=== PATIENT | female | born 1960 | race Caucasian/White ===

== ENCOUNTER 2023-07-22 09:24 | Emergency (ER) | payer MEDICARE, SELFPAY ==
--- NOTE | 2023-07-22 | XR_ITS ---
Patient: RENA MONIQUE Facility:?[facility] Patient ID:?[id number] Site Patient ID:?[id number]. Site :?[id number] Study:?XRay-Chest 2V-07/22/2023 11:38:43 AM Ordering Physician:DAVID Final Report: Indication: Shortness of breath Technique: PA and lateral views of the chest. Comparison: None. Findings: Low lung volumes. Normal cardiomediastinal silhouette. Minimal right basilar opacity. No pleural effusion or visualized pneumothorax. Thoracic spinal stimulator leads are seen. Impression: Minimal right basilar opacity may represent atelectasis given low lung volumes or developing infection. Dictated by Ryder Neri MD @ 07/22/2023 11:46:07 AM Signed by:?Ryder Neri MD @07/22/2023 11:46:07 AM (Electronic Signature)
[2023-07-22 09:37] VITALS: BP 111/77; PULSE 96; RESP 20; TEMP 35.8; O2SAT 96; BMI 36.2
[2023-07-22] MEDS: IPRAT-ALBUT 0.5-2.5 MG/3 ML NEB 1 NEB IH (10:25)
[2023-07-22 10:54] LABS: Basophils Percent Auto 0.1 % (0.0-3.0); Hematocrit 40.7 % (33.0-51.0); Immature Granulocytes Pct Auto 0.1 %; Lymphocytes Percent Auto 17.4 % (20-44); Mean Corpuscular HGB Conc 32 gm/dL (32-36); Mean Corpuscular Hemoglobin 29 pg (26-34); Mean Corpuscular Volume 92 fL (80-100); Monocytes Percent Auto 2.8 % (0.0-11.0); Neutrophils Percent Auto 79.6 % (42.0-72.0); Platelet Count* 445 K/uL (140-440); RDW Coefficient of Variation % 12.5 % (11.5-15.5); Red Blood Count 4.42 m/uL (4.00-5.20); White Blood Count* 14.62 K/uL (4.50-11.00)
[2023-07-22 10:59] LABS: Slide Review Reflex No
[2023-07-22 11:00] VITALS: PULSE 92; RESP 14; O2SAT 96
--- NOTE | 2023-07-22 11:04 | ED.SOB ---
HPI - SOB/Dyspnea General Date Seen: 07/22/23 Chief Complaint: Shortness of Breath/Dyspnea Stated Complaint: pneumonia Time Seen by Provider: 07/22/23 09:40 Source: patient Mode of arrival: ambulatory Limitations: no limitations History of Present Illness HPI Narrative: Patient is a 62-year-old female who was diagnosed with pneumonia 3 days ago. She started on prednisone and amoxicillin. She has a history of COPD, hypertension. States symptoms started about a week ago at were getting worse so she went to her primary care provider. At that time an x-ray was done showing a right lower lobe pneumonia. Was started on left previously mentioned prescriptions. Noticed today she was having some chest pain so was concerned and came to the emergency department to be evaluated. Also states she is having a worsening cough and shortness of breath. Notices she has difficulty going up and down her steps without getting short of breath. Was not tested for COVID/flu/RSV at her previous appointment. Has not had any fevers. Denies headache, vision changes, abdominal pain, nausea/vomiting, weakness, numbness. Has not been taking her breathing treatments because she do not know she was able to since she got a new machine and was afraid she would infect it. Related Data Home Medications Medication Instructions Recorded Confirmed amitriptyline 25 mg tablet 25 mg PO QPM 07/22/23 07/22/23 amoxicillin 500 mg capsule mg PO 07/22/23 celecoxib 200 mg capsule 200 mg PO DAILY 07/22/23 07/22/23 hydrocodone 5 mg-acetaminophen 325 1 - 2 tab PO DAILY PRN chronic pain 07/22/23 07/22/23 mg tablet lisinopril 20 mg tablet 20 mg PO DAILY 07/22/23 07/22/23 prednisone 20 mg tablet 40 mg PO DAILY 07/22/23 07/22/23 tramadol 300 mg tablet,extended 300 mg PO DAILY 07/22/23 07/22/23 release 24 hr Previous Rx's Medication Instructions Recorded azithromycin 250 mg tablet See Rx Instructions PO .COMPLEX #6 07/22/23 (Zithromax) tabs benzonatate 100 mg capsule 100 mg PO TID #15 caps 07/22/23 Allergies Allergy/AdvReac Type Severity Reaction Status Date / Time No Known Drug Allergies Allergy Verified 07/22/23 09:36 Review of Systems Status of ROS: Reports: 10 or more systems reviewed and unremarkable except as noted in History and below [facility] Social History Smoking Status: Smoker, status unknown How often do you have a drink containing alcohol: never AUDIT-C Alcohol total score: 0 Non-prescribed substance use: denies use Exam Narrative: Exam Narrative: Const: Well-nourished, Well-developed, in mild distress Eyes: PERRL, no conjunctival injection, and symmetrical lids HENT: Atraumatic external nose and ears. Moist mucous membranes. Neck: Symmetric, trachea midline, No thyromegaly. CVS: RRR, No murmurs or gallops. Peripheral pulses 2+ and equal in all extremities RESP: Unlabored respiratory effort. Clear to auscultation bilaterally. GI: Nontender/Nondistended, No rebound or guarding. MSK:Extremities w/o deformity, Normal Active ROM Skin: Warm, Dry. No rashes or lesions. Neuro: Normal Muscle tone, No focal neurological deficits. Psych: Awake, Alert, & Oriented x3. Appropriate mood and affect. Const: Vital Signs, click to edit/add: Vital Signs - 24 hr 07/22/23 09:37 07/22/23 11:00 07/22/23 12:32 Temperature 96.4 F L Pulse Rate 92 82 Pulse Rate [Pulse Oximeter] 96 Respiratory Rate 20 14 14 Blood Pressure 135/90 H Blood Pressure [Ri ght Upper Arm] 111/77 Pulse Oximetry 96 96 99 Oxygen Delivery Me thod Room Air Course Vital Signs Vital signs: Initial Vital Signs Temperature 96.4 F L 07/22/23 09:37 Temperature Source Temporal Artery Scan 07/22/23 09:37 Pulse Rate 96 07/22/23 09:37 Respiratory Rate 20 07/22/23 09:37 Blood Pressure 111/77 07/22/23 09:37 Blood Pressure Mean 88 07/22/23 09:37 Blood Pressure Position Sitting 07/22/23 09:37 Pulse Oximetry 96 07/22/23 09:37 Oxygen Delivery Method Room Air 07/22/23 09:37 Vital Signs Temperature 96.4 F L 07/22/23 09:37 Pulse Rate 96 07/22/23 09:37 Respiratory Rate 20 07/22/23 09:37 Blood Pressure 111/77 07/22/23 09:37 Pulse Oximetry 96 07/22/23 09:37 Oxygen Delivery Method Room Air 07/22/23 09:37 Temperature 96.4 F L 07/22/23 09:37 Pulse Rate 82 07/22/23 12:32 Respiratory Rate 14 07/22/23 12:32 Blood Pressure 135/90 H 07/22/23 12:32 Pulse Oximetry 99 07/22/23 12:32 Oxygen Delivery Method Room Air 07/22/23 09:37 Medications Administered Medications: Discontinued Medications Generic Name Dose Route Start Last Admin Trade Name Bonita PRN Reason Stop Dose Admin Albuterol/Ipratropium 1 neb 07/22/23 10:04 07/22/23 10:25 Iprat-Albut 0.5-2.5 Mg/3 Ml Neb IH 07/22/23 10:05 1 neb ONCE ONE Administration MDM - SOB/Dyspnea MDM Narrative Medical decision making narrative: Patient is a 62-year-old female presenting for chest pain, cough, shortness of breath. She did get diagnosed with pneumonia few days ago is think your symptoms are worse. Has not been using her breathing treatments as she was afraid to contaminate her apparatus. We will give her a DuoNeb treatment here in the emergency department. Was do chest x-ray to look for any worsening pneumonia. BMP, CBC, COVID/flu/RSV ordered. Since she is having chest pain we will do a troponin an EKG. White blood cell count came back at 14.62. Due to this she now meets SIRS criteria and blood cultures and lactate were added. Lactate is within normal limits. BMP shows no concerning abnormalities. COVID/flu/RSV is negative. Symptoms have improved significantly with the DuoNeb she states. Is no longer having the chest pain. EKG and both troponins showed no concerning findings. Chest x-ray reviewed by myself they react does show some minimal right basilar opacity that the the atelectasis or developing infection. Between that and the elevated white blood cell count I will add azithromycin. She is otherwise doing well. I will give her prescription for Tessalon Perles if the coughing continues. Also gave her a prescription for a spacer for her breathing treatments as she does not have 1. She is agreeable to this plan. Lab Data Labs: Lab Results 07/22/23 07/22/23 07/22/23 Range/Units 10:26 10:30 11:00 WBC 14.62 H (4.50-11.00) K/uL RBC 4.42 (4.00-5.20) m/uL Hgb 13.0 (12.0-16.0) gm/dL Hct 40.7 (33.0-51.0) % MCV 92 (80-100) fL MCH 29 (26-34) pg MCHC 32 (32-36) gm/dL RDW Coeff of Horacio 12.5 (11.5-15.5) % Plt Count 445 H (140-440) K/uL Neut % (Auto) 79.6 H (42.0-72.0) % Lymph % (Auto) 17.4 L (20-44) % Calvert % (Auto) 2.8 (0.0-11.0) % Eos % (Auto) 0.0 (0.0-7.0) % Baso % (Auto) 0.1 (0.0-3.0) % Neut # (Auto) 11.60 H (1.7-7.0) K/uL Lymph # (Auto) 2.50 (0.90-2.90) K/uL Calvert # (Auto) 0.40 (0.00-0.90) K/UL Eos # (Auto) 0.00 (0.00-0.50) K/uL Baso # (Auto) 0.00 (0.00-0.30) K/uL Abs Immat Gran (auto) 0.00 (0.00-0.30) K/uL Imm/Tot Granulo (auto) 0.1 % Sodium 139 (135-149) mmol/L Potassium 4.7 (3.6-5.1) mmol/L Chloride 104 (96-114) mmol/L Carbon Dioxide 26 (20-32) mmol/L Anion Gap 9 (7-15) mEq/L BUN 28 (7-30) mg/dL Creatinine 0.8 (0.5-1.5) mg/dL Estimated Creat Clear 46.73 Estimated GFR 84 ml/min Glucose 107 (60-115) mg/dL Lactate (0.5-1.9) mmol/L Calcium 9.7 (8.4-10.6) mg/dL SARS-CoV-2 (PCR) Negative SARS-CoV-2 (Negative) Influenza Type A (PCR) Negative PCR FLU A (Negative) Influenza Type B (PCR) Negative PCR FLU B (Negative) RSV (PCR) Negative PCR RSV (Negative) Lab Acknowledgement New Spec Needed POC Troponin I 0.00 L (0.01-0.04) ng/ml 07/22/23 07/22/23 Range/Units 11:19 12:38 WBC (4.50-11.00) K/uL RBC (4.00-5.20) m/uL Hgb (12.0-16.0) gm/dL Hct (33.0-51.0) % MCV (80-100) fL MCH (26-34) pg MCHC (32-36) gm/dL RDW Coeff of Horacio (11.5-15.5) % Plt Count (140-440) K/uL Neut % (Auto) (42.0-72.0) % Lymph % (Auto) (20-44) % Calvert % (Auto) (0.0-11.0) % Eos % (Auto) (0.0-7.0) % Baso % (Auto) (0.0-3.0) % Neut # (Auto) (1.7-7.0) K/uL Lymph # (Auto) (0.90-2.90) K/uL Calvert # (Auto) (0.00-0.90) K/UL Eos # (Auto) (0.00-0.50) K/uL Baso # (Auto) (0.00-0.30) K/uL Abs Immat Gran (auto) (0.00-0.30) K/uL Imm/Tot Granulo (auto) % Sodium (135-149) mmol/L Potassium (3.6-5.1) mmol/L Chloride (96-114) mmol/L Carbon Dioxide (20-32) mmol/L Anion Gap (7-15) mEq/L BUN (7-30) mg/dL Creatinine (0.5-1.5) mg/dL Estimated Creat Clear Estimated GFR ml/min Glucose (60-115) mg/dL Lactate 1.5 (0.5-1.9) mmol/L Calcium (8.4-10.6) mg/dL SARS-CoV-2 (PCR) (Negative) Influenza Type A (PCR) (Negative) Influenza Type B (PCR) (Negative) RSV (PCR) (Negative) Lab Acknowledgement POC Troponin I 0.00 L (0.01-0.04) ng/ml Imaging Data Chest x-ray: Attestation: I have reviewed the pertinent imaging results. Radiologist's impression: Minimal right basilar opacity may represent atelectasis given low lung volumes or developing infection. Dictated by Ryder Neri MD @ 07/22/2023 11:46:07 AM ECG Data Attestation: I personally reviewed and interpreted this ECG as follows: Prior ECG tracings: not available for review Interpretation: Normal sinus rhythm with a rate of 86 beats per minute, normal intervals, normal axis, no ST or T-wave abnormalities Discharge Plan Discharge Clinical Impression: Pneumonia Patient Disposition: Home, Self-Care Condition: Improved Instructions: Community Acquired Pneumonia (DC) Additional Instructions: Use the spacer with your breathing treatments. I gave you a written prescription for 1. Use the breathing treatments as needed for your cough. Continue taking amoxicillin and also start taking the azithromycin. Return to emergency department for new or worsening symptoms Prescriptions: New azithromycin [Zithromax] 250 mg tablet See Rx Instructions PO .COMPLEX Qty: 6 0RF Rx Instructions: For 250 mg dose pack: take 500 mg today (day 1), then 250 mg for 4 days (days 2-5) benzonatate 100 mg capsule 100 mg PO TID Qty: 15 0RF No Action celecoxib 200 mg capsule 200 mg PO DAILY amoxicillin 500 mg capsule PO hydrocodone-acetaminophen 5-325 mg tablet 1 - 2 tab PO DAILY PRN (Reason: chronic pain) lisinopril 20 mg tablet 20 mg PO DAILY prednisone 20 mg tablet 40 mg PO DAILY amitriptyline 25 mg tablet 25 mg PO QPM tramadol 300 mg tablet extended release 24 hr 300 mg PO DAILY Follow Up/Referrals: Janie Guevara PA-C [Primary Care Provider] - Stand Alone Forms: [employer] Info Instructions
[2023-07-22 11:14] LABS: Chloride* 104 mmol/L (96-114); Potassium* 4.7 mmol/L (3.6-5.1); Sodium* 139 mmol/L (135-149)
[2023-07-22 11:17] LABS: Creatinine* 0.8 mg/dL (0.5-1.5); Est. Creatinine Clearance* 46.73; Estimated Glomerular Filt Rate 84 ml/min
[2023-07-22 11:18] LABS: Anion Gap 9 mEq/L (7-15); Blood Urea Nitrogen* 28 mg/dL (7-30); Calcium* 9.7 mg/dL (8.4-10.6); Carbon Dioxide* 26 mmol/L (20-32); Glucose* 107 mg/dL (60-115)
[2023-07-22 11:23] LABS: Lab Add On Test New Spec Needed
[2023-07-22 11:24] LABS: PCR FLU A Negative PCR FLU A (Negative); PCR FLU B Negative PCR FLU B (Negative); PCR RSV Negative PCR RSV (Negative); SARS PCR* Negative SARS-CoV-2 (Negative)
[2023-07-22 11:26] LABS: Lactate* 1.5 mmol/L (0.5-1.9)
[2023-07-22 12:32] VITALS: BP 135/90; PULSE 82; RESP 14; O2SAT 99
== END 2023-07-22 13:05 | disposition home or self-care (01) ==
PROVIDERS: Emergency Provider Student in an Organized Health Care Education/Training Program; PCP Physician Assistant Medical
DX: J18.9 Pneumonia, unspecified organism (principal)
CPT/HCPCS: 36415; 71046; 80048; 83605; 84484; 85025; 87040; 87631; 93005; 94640; 99283; 99284

== ENCOUNTER 2024-03-20 13:41 | Emergency (ER) | payer MEDICARE, SELFPAY ==
[2024-03-20] VITALS (17 sets, daily range): BP systolic 95–99; BP diastolic 60–74; PULSE 79–115; RESP 12–18; TEMP 36.2–36.3; O2SAT 93–100; BMI 34.8
--- NOTE | 2024-03-20 14:34 | ED.GENADULT ---
HPI - General Adult General Chief complaint: Chest Pain <Colleen Kidd MD - Last Filed: 03/23/24 11:56> Stated complaint: shortness of breath, hurts to breath <Colleen Kidd MD - Last Filed: 03/23/24 11:56> Time Seen by Provider: 03/20/24 14:29 <Colleen Kidd MD - Last Filed: 03/23/24 11:56> Source: patient <Colleen Kidd MD - Last Filed: 03/23/24 11:56> History of Present Illness HPI narrative: Patient is a 63-year-old woman who comes in because of chest pain. She had had a little bit of an illness recently with a cough, had been treated with prednisone which she has since completed. She says the cough is getting better but as the cough has improved she has developed anterior chest pain which she notices mostly with any kind of movement or walking, as well as when she talks. She says if she is sitting or laying down, she does not have chest pain. It has been there for 3 days. She also feels short of breath. She denies fevers. She has not noted unusual leg pain or swelling, she says she has chronic leg problems related to her back pain. She quit smoking 9 years ago. She has no cardiac history. No history of DVT or PE. She does have a history of pneumonia. She is pain-free right now. <Colleen Kidd MD - Last Filed: 03/23/24 11:56> Related Data Home medications: Home Medications ?Medication ?Instructions ?Recorded ?Confirmed amitriptyline 25 mg tablet 25 mg PO QPM 07/22/23 03/20/24 celecoxib 200 mg capsule 200 mg PO DAILY 07/22/23 03/20/24 hydrocodone 5 mg-acetaminophen 325 1 - 2 tab PO DAILY PRN chronic pain 07/22/23 03/20/24 mg tablet lisinopril 20 mg tablet 20 mg PO DAILY 07/22/23 03/20/24 tramadol 300 mg tablet,extended 300 mg PO DAILY 07/22/23 03/20/24 release 24 hr Previous Rx's ?Medication ?Instructions ?Recorded prednisone 20 mg tablet 20 mg PO BID #10 tabs 03/20/24 <Colleen Kidd MD - Last Filed: 03/23/24 11:56> Allergies/adverse reactions: Allergies Allergy/AdvReac Type Severity Reaction Status Date / Time No Known Drug Allergies Allergy Verified 03/20/24 16:28 <Colleen Kidd MD - Last Filed: 03/23/24 11:56> Review of Systems Status of ROS: Reports: 10 or more systems reviewed and unremarkable except as noted in History and below <Colleen Kidd MD - Last Filed: 03/23/24 11:56> [facility] Social History: Social History Smoking Status: Former smoker How often do you have a drink containing alcohol: never AUDIT-C Alcohol total score: 0 Non-prescribed substance use: denies use <Colleen Kidd MD - Last Filed: 03/23/24 11:56> Exam Narrative: Exam Narrative: Vital signs reviewed In general, alert, nontoxic mid aged woman. Speaks in full sentences. Head: Normocephalic, atraumatic. Eyes: Sclera clear. Pupils equal and reactive. ENT: Mucous membranes moist. Neck: Supple without adenopathy. Heart: Regular rate and rhythm without murmur. Chest is nontender to palpation. Lungs: Clear. No increased work of breathing, crackles or wheezes. Abdomen: Soft, nontender to palpation. Extremities: Well perfused, pulses intact. No significant edema. Neurologic: Alert, conversant. Speech fluent, face symmetric. Moves all extremities equally. Skin: Warm, dry well perfused. Affect: Normal. <Colleen Kidd MD - Last Filed: 03/23/24 11:56> Const: Vital Signs, click to edit/add: Vital Signs - 24 hr 03/20/24 13:59 03/20/24 14:34 03/20/24 15:19 Temperature 97.1 F L 97.3 F L Pulse Rate [Pulse Oximeter] 115 H 86 Respiratory Rate 12 18 Blood Pressure [Ri ght Upper Arm] 95/60 99/70 Pulse Oximetry 93 97 94 Oxygen Delivery Me thod Room Air Room Air <Colleen Kidd MD - Last Filed: 03/23/24 11:56> Vital Signs, click to edit/add: Vital Signs - 24 hr 03/20/24 13:59 03/20/24 14:34 03/20/24 15:19 Temperature 97.1 F L 97.3 F L Pulse Rate [Pulse Oximeter] 115 H 86 Respiratory Rate 12 18 Blood Pressure [Ri ght Upper Arm] 95/60 99/70 Pulse Oximetry 93 97 94 Oxygen Delivery Me thod Room Air Room Air <Adeola Quesada MD - Last Filed: 03/20/24 17:41> Documenting provider has reviewed patient's vital signs: yes <Colleen Kidd MD - Last Filed: 03/23/24 11:56> Course Course ED Course: On arrival, patient was maintained on monitor and pulse oximetry. She had an EKG which shows a sinus tachycardia, ventricular rate of 101, she was 115 when she came in. She has a corrected QT of 414 milliseconds and a normal GA interval. No acute ST segment changes, unremarkable T-waves. Baseline artifact makes interpretation of lead 3 difficult. Her exam is unremarkable. Vital signs aside from tachycardia are notable for an O2 sat of 93% on room air. She is afebrile. Pain seems somewhat atypical for cardiac pain, but will obtain a troponin series. D-dimer ordered as well. Other diagnostic considerations would include pulmonary embolism, pneumonia, chest wall pain, pleurisy, gastroesophageal reflux disease, among others. Nasal swab is positive for COVID[place] [address], platelets are also a little bit elevated at 468,000 hundred sixty eight thousand. Notably, she has a lymphocytosis. Other labs are pending at this time. I do think she should have a repeat troponin at 2 hours., depending on D-dimer may need imaging of her chest. Patient is signed out to Dr. Nino to follow-up on lab and imaging,determine final disposition and plan. <Colleen Kidd MD - Last Filed: 03/23/24 11:56> Reevaluation(s) Time of Reevaluation #1: 17:23 <Adeola Quesada MD - Last Filed: 03/20/24 17:41> Reevaluation #1: Have reviewed with patient that her CT is not showing any infiltrate, no pulmonary embolus. She does have some pulmonary emphysema, does have a history of remote smoking. She did get a DuoNeb in clinic while she was there this morning, did help her symptoms. She relays to me that she will start getting pain with activity and then feel like she cannot breathe. We are awaiting her 2nd troponin, if normal, very likely is not cardiac and certainly sounds like this is pulmonary. She has a nebulizer that was given to her from clinic, DuoNebs were sent in. She does feel better when she is on the prednisone. I do wonder if this is some COPD symptoms. She has a follow-up scheduled with her primary provider coming up, they can discuss this further, would recommend formal PFTs be done. She notes every time she gets a respiratory illness, she will get these symptoms. She did just complete prednisone 2 days ago, felt better on it. She was unaware that her COVID was positive. She really is not sick any longer, minimal cough at this time. She was originally in urgent care 8 days ago, did not have testing done for COVID. She believes the test maybe was missed as they did discuss it being done. As far as the COVID, discussed CDC guidelines. She is really not coughing, does not feel ill, feels like she gets chest pain and shortness of breath with activity and that this happens with colds. She is certainly far out that no medication is indicated for COVID. She does note that she has had an albuterol inhaler in the past and really does not help with the symptoms. The DuoNeb did this morning. <Adeola Quesada MD - Last Filed: 03/20/24 17:41> Vital Signs Vital signs: Initial Vital Signs Temperature 97.1 F L 03/20/24 13:59 Temperature Source Temporal Artery Scan 03/20/24 13:59 Pulse Rate 115 H 03/20/24 13:59 Respiratory Rate 12 03/20/24 13:59 Blood Pressure 95/60 03/20/24 13:59 Blood Pressure Mean 71 03/20/24 13:59 Blood Pressure Position Sitting 03/20/24 13:59 Pulse Oximetry 93 03/20/24 13:59 Oxygen Delivery Method Room Air 03/20/24 13:59 Vital Signs Temperature 97.1 F L 03/20/24 13:59 Pulse Rate 115 H 03/20/24 13:59 Respiratory Rate 12 03/20/24 13:59 Blood Pressure 95/60 03/20/24 13:59 Pulse Oximetry 93 03/20/24 13:59 Oxygen Delivery Method Room Air 03/20/24 13:59 Temperature 97.3 F L 03/20/24 15:19 Pulse Rate 81 03/20/24 17:45 Respiratory Rate 18 03/20/24 15:19 Blood Pressure 99/70 03/20/24 15:19 Pulse Oximetry 97 03/20/24 17:45 Oxygen Delivery Method Room Air 03/20/24 15:19 <Colleen Kidd MD - Last Filed: 03/23/24 11:56> Initial Vital Signs Temperature 97.1 F L 03/20/24 13:59 Temperature Source Temporal Artery Scan 03/20/24 13:59 Pulse Rate 115 H 03/20/24 13:59 Respiratory Rate 12 03/20/24 13:59 Blood Pressure 95/60 03/20/24 13:59 Blood Pressure Mean 71 03/20/24 13:59 Blood Pressure Position Sitting 03/20/24 13:59 Pulse Oximetry 93 03/20/24 13:59 Oxygen Delivery Method Room Air 03/20/24 13:59 Vital Signs Temperature 97.1 F L 03/20/24 13:59 Pulse Rate 115 H 03/20/24 13:59 Respiratory Rate 12 03/20/24 13:59 Blood Pressure 95/60 03/20/24 13:59 Pulse Oximetry 93 03/20/24 13:59 Oxygen Delivery Method Room Air 03/20/24 13:59 Temperature 97.3 F L 03/20/24 15:19 Pulse Rate 81 03/20/24 17:45 Respiratory Rate 18 03/20/24 15:19 Blood Pressure 99/70 03/20/24 15:19 Pulse Oximetry 97 03/20/24 17:45 Oxygen Delivery Method Room Air 03/20/24 15:19 <Adeola Quesada MD - Last Filed: 03/20/24 17:41> Medications Administered Medications: Discontinued Medications Generic Name Dose Route Start Last Admin Trade Name Freq PRN Reason Stop Dose Admin Ketorolac Tromethamine 15 mg 03/20/24 14:34 03/20/24 14:52 Ketorolac 15 Mg/Ml Inj IVP 03/20/24 14:35 15 mg ONCE ONE Administration <Colleen Kidd MD - Last Filed: 03/23/24 11:56> Discontinued Medications Generic Name Dose Route Start Last Admin Trade Name Bonita PRN Reason Stop Dose Admin Ketorolac Tromethamine 15 mg 03/20/24 14:34 03/20/24 14:52 Ketorolac 15 Mg/Ml Inj IVP 03/20/24 14:35 15 mg ONCE ONE Administration <Adeola Quesada MD - Last Filed: 03/20/24 17:41> Medical Decision Making Lab Data Lab results reviewed: Yes I reviewed the patient's lab results <Adeola Quesada MD - Last Filed: 03/20/24 17:41> Labs: Lab Results 03/20/24 03/20/24 03/20/24 Range/Units 14:12 14:35 14:49 WBC 17.61 H (4.50-11.00) K/uL RBC 4.51 (4.00-5.20) m/uL Hgb 13.1 (12.0-16.0) gm/dL Hct 42.0 (33.0-51.0) % MCV 93 (80-100) fL MCH 29 (26-34) pg MCHC 31 L (32-36) gm/dL RDW Coeff of Horacio 12.9 (11.5-15.5) % Plt Count 468 H (140-440) K/uL Neut % (Auto) 38.8 L (42.0-72.0) % Lymph % (Auto) 51.2 H (20-44) % [place] % (Auto) 7.6 (0.0-11.0) % Eos % (Auto) 1.4 (0.0-7.0) % Baso % (Auto) 0.2 (0.0-3.0) % Neut # (Auto) 6.80 (1.7-7.0) K/uL Lymph # (Auto) 9.00 H (0.90-2.90) K/uL [place] # (Auto) 1.30 H (0.00-0.90) K/UL Eos # (Auto) 0.20 (0.00-0.50) K/uL Baso # (Auto) 0.00 (0.00-0.30) K/uL Abs Immat Gran (auto) 0.10 (0.00-0.30) K/uL Imm/Tot Granulo (auto) 0.8 % Diff Slide Review Acceptable Review (Acceptable) D-Dimer Quant (PE/DVT) 0.84 H (0.00-0.50) ug/ml Sodium 139 (135-149) mmol/L Potassium 4.3 (3.6-5.1) mmol/L Chloride 104 (96-114) mmol/L Carbon Dioxide 28 (20-32) mmol/L Anion Gap 7 (7-15) mEq/L BUN 29 (7-30) mg/dL Creatinine 0.9 (0.5-1.5) mg/dL Estimated Creat Clear 46.13 Estimated GFR 72 ml/min Glucose 149 H (60-115) mg/dL Calcium 9.3 (8.4-10.6) mg/dL Total Bilirubin 0.3 (0.1-1.5) mg/dL Direct Bilirubin 0.3 (0.0-0.5) mg/dL AST 18 (12-35) U/L ALT 16 (4-35) U/L Alkaline Phosphatase 85 (40-150) U/L C-Reactive Protein < 0.5 L (0.5-1.0) mg/dL Total Protein 7.2 (6.0-8.3) g/dL Albumin 3.9 (3.3-5.0) g/dL Lipase 161 (23-300) U/L SARS-CoV-2 (PCR) POSITIVE SARS-CoV-2 A (Negative) Influenza Type A (PCR) Negative PCR FLU A (Negative) Influenza Type B (PCR) Negative PCR FLU B (Negative) RSV (PCR) Negative PCR RSV (Negative) POC Troponin I 0.00 L (0.01-0.04) ng/ml 03/20/24 Range/Units 17:00 WBC (4.50-11.00) K/uL RBC (4.00-5.20) m/uL Hgb (12.0-16.0) gm/dL Hct (33.0-51.0) % MCV (80-100) fL MCH (26-34) pg MCHC (32-36) gm/dL RDW Coeff of Horacio (11.5-15.5) % Plt Count (140-440) K/uL Neut % (Auto) (42.0-72.0) % Lymph % (Auto) (20-44) % [place] % (Auto) (0.0-11.0) % Eos % (Auto) (0.0-7.0) % Baso % (Auto) (0.0-3.0) % Neut # (Auto) (1.7-7.0) K/uL Lymph # (Auto) (0.90-2.90) K/uL [place] # (Auto) (0.00-0.90) K/UL Eos # (Auto) (0.00-0.50) K/uL Baso # (Auto) (0.00-0.30) K/uL Abs Immat Gran (auto) (0.00-0.30) K/uL Imm/Tot Granulo (auto) % Diff Slide Review (Acceptable) D-Dimer Quant (PE/DVT) (0.00-0.50) ug/ml Sodium (135-149) mmol/L Potassium (3.6-5.1) mmol/L Chloride (96-114) mmol/L Carbon Dioxide (20-32) mmol/L Anion Gap (7-15) mEq/L BUN (7-30) mg/dL Creatinine (0.5-1.5) mg/dL Estimated Creat Clear Estimated GFR ml/min Glucose (60-115) mg/dL Calcium (8.4-10.6) mg/dL Total Bilirubin (0.1-1.5) mg/dL Direct Bilirubin (0.0-0.5) mg/dL AST (12-35) U/L ALT (4-35) U/L Alkaline Phosphatase (40-150) U/L C-Reactive Protein (0.5-1.0) mg/dL Total Protein (6.0-8.3) g/dL Albumin (3.3-5.0) g/dL Lipase (23-300) U/L SARS-CoV-2 (PCR) (Negative) Influenza Type A (PCR) (Negative) Influenza Type B (PCR) (Negative) RSV (PCR) (Negative) POC Troponin I 0.01 (0.01-0.04) ng/ml <Colleen Kidd MD - Last Filed: 03/23/24 11:56> Lab Results 03/20/24 03/20/24 03/20/24 Range/Units 14:12 14:35 14:49 WBC 17.61 H (4.50-11.00) K/uL RBC 4.51 (4.00-5.20) m/uL Hgb 13.1 (12.0-16.0) gm/dL Hct 42.0 (33.0-51.0) % MCV 93 (80-100) fL MCH 29 (26-34) pg MCHC 31 L (32-36) gm/dL RDW Coeff of Horacio 12.9 (11.5-15.5) % Plt Count 468 H (140-440) K/uL Neut % (Auto) 38.8 L (42.0-72.0) % Lymph % (Auto) 51.2 H (20-44) % [place] % (Auto) 7.6 (0.0-11.0) % Eos % (Auto) 1.4 (0.0-7.0) % Baso % (Auto) 0.2 (0.0-3.0) % Neut # (Auto) 6.80 (1.7-7.0) K/uL Lymph # (Auto) 9.00 H (0.90-2.90) K/uL [place] # (Auto) 1.30 H (0.00-0.90) K/UL Eos # (Auto) 0.20 (0.00-0.50) K/uL Baso # (Auto) 0.00 (0.00-0.30) K/uL Abs Immat Gran (auto) 0.10 (0.00-0.30) K/uL Imm/Tot Granulo (auto) 0.8 % Diff Slide Review Acceptable Review (Acceptable) D-Dimer Quant (PE/DVT) 0.84 H (0.00-0.50) ug/ml Sodium 139 (135-149) mmol/L Potassium 4.3 (3.6-5.1) mmol/L Chloride 104 (96-114) mmol/L Carbon Dioxide 28 (20-32) mmol/L Anion Gap 7 (7-15) mEq/L BUN 29 (7-30) mg/dL Creatinine 0.9 (0.5-1.5) mg/dL Estimated Creat Clear 46.13 Estimated GFR 72 ml/min Glucose 149 H (60-115) mg/dL Calcium 9.3 (8.4-10.6) mg/dL Total Bilirubin 0.3 (0.1-1.5) mg/dL Direct Bilirubin 0.3 (0.0-0.5) mg/dL AST 18 (12-35) U/L ALT 16 (4-35) U/L Alkaline Phosphatase 85 (40-150) U/L C-Reactive Protein < 0.5 L (0.5-1.0) mg/dL Total Protein 7.2 (6.0-8.3) g/dL Albumin 3.9 (3.3-5.0) g/dL Lipase 161 (23-300) U/L SARS-CoV-2 (PCR) POSITIVE SARS-CoV-2 A (Negative) Influenza Type A (PCR) Negative PCR FLU A (Negative) Influenza Type B (PCR) Negative PCR FLU B (Negative) RSV (PCR) Negative PCR RSV (Negative) POC Troponin I 0.00 L (0.01-0.04) ng/ml 03/20/24 Range/Units 17:00 WBC (4.50-11.00) K/uL RBC (4.00-5.20) m/uL Hgb (12.0-16.0) gm/dL Hct (33.0-51.0) % MCV (80-100) fL MCH (26-34) pg MCHC (32-36) gm/dL RDW Coeff of Horacio (11.5-15.5) % Plt Count (140-440) K/uL Neut % (Auto) (42.0-72.0) % Lymph % (Auto) (20-44) % [place] % (Auto) (0.0-11.0) % Eos % (Auto) (0.0-7.0) % Baso % (Auto) (0.0-3.0) % Neut # (Auto) (1.7-7.0) K/uL Lymph # (Auto) (0.90-2.90) K/uL [place] # (Auto) (0.00-0.90) K/UL Eos # (Auto) (0.00-0.50) K/uL Baso # (Auto) (0.00-0.30) K/uL Abs Immat Gran (auto) (0.00-0.30) K/uL Imm/Tot Granulo (auto) % Diff Slide Review (Acceptable) D-Dimer Quant (PE/DVT) (0.00-0.50) ug/ml Sodium (135-149) mmol/L Potassium (3.6-5.1) mmol/L Chloride (96-114) mmol/L Carbon Dioxide (20-32) mmol/L Anion Gap (7-15) mEq/L BUN (7-30) mg/dL Creatinine (0.5-1.5) mg/dL Estimated Creat Clear Estimated GFR ml/min Glucose (60-115) mg/dL Calcium (8.4-10.6) mg/dL Total Bilirubin (0.1-1.5) mg/dL Direct Bilirubin (0.0-0.5) mg/dL AST (12-35) U/L ALT (4-35) U/L Alkaline Phosphatase (40-150) U/L C-Reactive Protein (0.5-1.0) mg/dL Total Protein (6.0-8.3) g/dL Albumin (3.3-5.0) g/dL Lipase (23-300) U/L SARS-CoV-2 (PCR) (Negative) Influenza Type A (PCR) (Negative) Influenza Type B (PCR) (Negative) RSV (PCR) (Negative) POC Troponin I 0.01 (0.01-0.04) ng/ml <Adeola Quesada MD - Last Filed: 03/20/24 17:41> Imaging Data Chest x-ray: Attestation: I have reviewed the pertinent imaging results. <Colleen Kidd MD - Last Filed: 03/23/24 11:56> Radiologist's impression: Patient: Rena Monique MR#: [id number] : 1960 Acct:[id number] Loc: ED Service Date: 03/20/[address]: Ordering Physician: Colleen Kidd M.D. Date of Service: 03/20/24 Procedure(s): XR chest 1V portable Accession Number(s): [id number] cc: Colleen iKdd M.D.; Janie Guevara PA-C~ For Patients: As a result of the Century Cures Act, medical imaging exams and procedure reports are released immediately into your electronic medical record. You may view this report before your referring provider. If you have questions, please contact your health care provider. Indication: Chest pain Comparison: None available. Technique: Single AP view chest Findings: There is hyperinflation and chronic interstitial change. There is no focal consolidation, effusion, or pneumothorax. The cardiac silhouette is mildly prominent. The bony thorax is grossly intact. Impression: Mild chronic interstitial changes without evidence of dense consolidation. Dictated by Tariq Pandey MD @ 03/20/2024 3:51:42 PM <Colleen Kidd MD - Last Filed: 03/23/24 11:56> CT scan - chest: Attestation: I have reviewed the pertinent imaging results. <Adeola Quesada MD - Last Filed: 03/20/24 17:41> Radiologist's impression: Patient: RENA MONIQUE Facility:?[facility] Patient ID:?[id number] Site Patient ID:?[id number]. Site :?1960 Study:?CT-Chest 75 CC ISOVUE 370-03/20/2024 4:28:35 PM Ordering Physician:Jolly aMcias Final Report: INDICATION: Cough, shortness of breath. TECHNIQUE: CT chest was acquired with 75 cc Isovue 370 IV contrast. COMPARISON: None. FINDINGS: Lungs and pleura: Pulmonary emphysema. No suspicious nodules or infiltrates. No pleural effusions, pleural thickening, or pneumothorax. Heart and vasculature: Heart size is normal. Coronary artery calcifications. Thoracic aorta and pulmonary artery are normal in caliber.No central pulmonary embolism. Lymph nodes/mediastinum: No mediastinal, hilar, or axillary adenopathy. Chest wall: No masses. Upper abdomen: Normal. Bones: Unremarkable for age. IMPRESSION: No acute intra thoracic abnormality including focal consolidations. Pulmonary emphysema. Please note that all CT scans at this facility use dose modulation, iterative reconstruction, and/or weight-based dosing when appropriate to reduce radiation dose to as low as reasonably achievable. Dictated by Timoteo Caldera MD @ 03/20/2024 5:13:39 PM (Electronic Signature) <Adeola Quesada MD - Last Filed: 03/20/24 17:41> Discharge Plan Discharge Clinical Impression: Pulmonary emphysema determined by X-ray, COVID-19 Chest pain Qualifiers: Chest pain type: other chest pain Qualified Code(s): R07.89 - Other chest pain <Colleen Kidd MD - Last Filed: 03/23/24 11:56> Patient Disposition: Home, Self-Care <Colleen Kidd MD - Last Filed: 03/23/24 11:56> Condition: Stable <Colleen Kidd MD - Last Filed: 03/23/24 11:56> Instructions: Emphysema (ED) <Colleen Kidd MD - Last Filed: 03/23/24 11:56> Additional Instructions: Do recommend that you do the DuoNebs up to 4 times a day for your symptoms. Will give another course of prednisone. Need to keep your clinic follow-up. You should get scheduled for formal pulmonary function tests but need to wait about 4-6 weeks until you are back to baseline. Your primary care provider should order these to further evaluate for symptomatic emphysema/COPD. The CT of the chest did show pulmonary emphysema changes but there was no blood clots/pulmonary emboli or any evidence of any infiltrate such as pneumonia. <Colleen Kidd MD - Last Filed: 03/23/24 11:56> Activity Level: Activity as Tolerated <Colleen Kidd MD - Last Filed: 03/23/24 11:56> Activity as Tolerated <Adeola Quesada MD - Last Filed: 03/20/24 17:41> Prescriptions: New prednisone 20 mg tablet 20 mg PO BID Qty: 10 0RF No Action celecoxib 200 mg capsule 200 mg PO DAILY hydrocodone-acetaminophen 5-325 mg tablet 1 - 2 tab PO DAILY PRN (Reason: chronic pain) lisinopril 20 mg tablet 20 mg PO DAILY amitriptyline 25 mg tablet 25 mg PO QPM tramadol 300 mg tablet extended release 24 hr 300 mg PO DAILY <Colleen Kidd MD - Last Filed: 03/23/24 11:56> Follow Up/Referrals: McLeran,Janie M, PA-C [Primary Care Provider] - <Colleen Kidd MD - Last Filed: 03/23/24 11:56> Stand Alone Forms: MyHealth Info Instructions <Colleen Kidd MD - Last Filed: 03/23/24 11:56>
[2024-03-20] MEDS: KETOROLAC 15 MG/ML inj IVP (14:52)
[2024-03-20 15:17] LABS: PCR FLU A Negative PCR FLU A (Negative); PCR FLU B Negative PCR FLU B (Negative); PCR RSV Negative PCR RSV (Negative); SARS PCR* POSITIVE SARS-CoV-2 (Negative)
[2024-03-20 15:27] LABS: Basophils Percent Auto 0.2 % (0.0-3.0); Eosinophils Percent Auto 1.4 % (0.0-7.0); Hemoglobin* 13.1 gm/dL (12.0-16.0); Immature Granulocytes Pct Auto 0.8 %; Lymphocytes Percent Auto 51.2 % (20-44); Mean Corpuscular HGB Conc 31 gm/dL (32-36); Mean Corpuscular Hemoglobin 29 pg (26-34); Mean Corpuscular Volume 93 fL (80-100); Monocytes Percent Auto 7.6 % (0.0-11.0); Neutrophils Percent Auto 38.8 % (42.0-72.0); Platelet Count* 468 K/uL (140-440); RDW Coefficient of Variation % 12.9 % (11.5-15.5); Red Blood Count 4.51 m/uL (4.00-5.20); White Blood Count* 17.61 K/uL (4.50-11.00)
[2024-03-20 15:30] LABS: Slide Review Reflex Yes
[2024-03-20 15:36] LABS: D Dimer Quantitative* 0.84 ug/ml (0.00-0.50)
[2024-03-20 15:45] LABS: Albumin* 3.9 g/dL (3.3-5.0); Chloride* 104 mmol/L (96-114)
[2024-03-20 15:46] LABS: Potassium* 4.3 mmol/L (3.6-5.1); Sodium* 139 mmol/L (135-149)
[2024-03-20 15:47] LABS: Creatinine* 0.9 mg/dL (0.5-1.5); Est. Creatinine Clearance* 46.13; Estimated Glomerular Filt Rate 72 ml/min
[2024-03-20 15:48] LABS: Alkaline Phosphatase* 85 U/L (40-150); Anion Gap 7 mEq/L (7-15); Aspartate Amino Transferase* 18 U/L (12-35); Bilirubin Direct* 0.3 mg/dL (0.0-0.5); Bilirubin Total* 0.3 mg/dL (0.1-1.5); Blood Urea Nitrogen* 29 mg/dL (7-30); Carbon Dioxide* 28 mmol/L (20-32); Lipase* 161 U/L (23-300); Total Protein* 7.2 g/dL (6.0-8.3)
[2024-03-20 15:49] LABS: Alanine Aminotransferase* 16 U/L (4-35); Calcium* 9.3 mg/dL (8.4-10.6); Glucose* 149 mg/dL (60-115)
[2024-03-20 15:56] LABS: C Reactive Protein* < 0.5 mg/dL (0.5-1.0)
--- NOTE | 2024-03-20 16:01 | CRLHL7_ITS ---
For Patients: As a result of the Century Cures Act, medical imaging exams and procedure reports are released immediately into your electronic medical record. You may view this report before your referring provider. If you have questions, please contact your health care provider. INDICATION: Cough, shortness of breath. TECHNIQUE: CT chest was acquired with 75 cc Isovue 370 IV contrast. COMPARISON: None. FINDINGS: Lungs and pleura: Pulmonary emphysema. No suspicious nodules or infiltrates. No pleural effusions, pleural thickening, or pneumothorax. Heart and vasculature: Heart size is normal. Coronary artery calcifications. Thoracic aorta and pulmonary artery are normal in caliber.No central pulmonary embolism. Lymph nodes/mediastinum: No mediastinal, hilar, or axillary adenopathy. Chest wall: No masses. Upper abdomen: Normal. Bones: Unremarkable for age. IMPRESSION: No acute intra thoracic abnormality including focal consolidations. Pulmonary emphysema. Please note that all CT scans at this facility use dose modulation, iterative reconstruction, and/or weight-based dosing when appropriate to reduce radiation dose to as low as reasonably achievable. Dictated by Timoteo Caldera MD @ 03/20/2024 5:13:39 PM (Electronically Signed)
[2024-03-20 17:29] LABS: Troponin, Point-of-Care* 0.01 ng/ml (0.01-0.04)
[2024-03-20 18:00] LABS: Slide Review Acceptable Review (Acceptable)
== END 2024-03-20 18:15 | disposition home or self-care (01) ==
PROVIDERS: Emergency Medicine; Emergency Provider Family Medicine; PCP Physician Assistant Medical
DX: R07.89 Other chest pain (principal); J43.8 Other emphysema
CPT/HCPCS: 36415; 71045; 71260; 80048; 80076; 83690; 84484; 85025; 85379; 86140; 87631; 93005; 94761; 96374; 99284; 99285; J1885; Q9967

== ENCOUNTER 2024-08-17 08:44 | Outpatient (RCR) | payer MEDICARE, SELFPAY | END 2024-12-15 23:59 | disposition home or self-care (01) | PROVIDERS: PCP Physician Assistant Medical; Visit Provider Physician Assistant Medical | DX: H81.11 Benign paroxysmal vertigo, right ear (principal); R47.89 Other speech disturbances; R26.89 Other abnormalities of gait and mobility; Z51.89 Encounter for other specified aftercare | CPT/HCPCS: 97163 ==